=== PATIENT | female | born 1975 | race African-American/Black ===

== ENCOUNTER 2017-03-19 10:05 | Emergency (ER) | payer SELFPAY ==
[~2017-03-19] VITALS: Ht 165.1 cm; Wt 72.6 kg
[~2017-03-19 10:05] MED LIST: FERR325T PO; protonix PO
[2017-03-19] MEDS ORDERED: EPINEPHrine HCL 1 MG/10 ML SYRG ONE (10:07)
[2017-03-19 10:21] VITALS: BP 0/0
[2017-03-19] MEDS ORDERED: SODIUM BICARBONATE 8.4% INJ 50ML SYRINGE IV ONE (12:07)
[2017-03-19] MEDS ORDERED: EPINEPHrine HCL 1 MG/10 ML SYRG IV ONE (12:07)
== END 2017-03-19 11:53 | disposition expired ==
LOC: ER 10:05
DX: I46.9 Cardiac arrest, cause unspecified (principal); K21.9 Gastro-esophageal reflux disease without esophagitis; Z88.6 Allergy status to analgesic agent
CPT/HCPCS: 92950; 99291; J0171